=== PATIENT | female | born 1960 | race Caucasian/White ===

== ENCOUNTER 2022-03-21 11:12 | Outpatient (CLI) | payer OTHER, BC, SELFPAY ==
--- NOTE | 2022-03-21 11:30 | CRLHL7_ITS ---
For Patients: As a result of the Cures Act, medical imaging exams and procedure reports are released immediately into your electronic medical record. You may view this report before your referring provider. If you have questions, please contact your health care provider. BILATERAL SCREENING MAMMOGRAM WITH COMPUTER-AIDED DETECTION AND TOMOSYNTHESIS TECHNIQUE: CC and MLO views were obtained. These mammographic images have been obtained using full-field digital technique. These mammographic images were interpreted with the benefit of computer-aided detection. Breast tomosynthesis was used in this interpretation. COMPARISON FILM: 11/10/19, 05/22/18, 01/08/17. FINDINGS: There are scattered areas of fibroglandular density. IMPRESSION: There is no radiographic evidence for malignancy. ASSESSMENT: BI-RADS Category 1: Negative RECOMMENDATION: Routine screening mammogram in 1 year. A lay language report of this examination will be provided to the patient. JOVAN KIRK M.D. Diagnostic Radiologist [email or web address] JORGE/stan Transcribed: 03/22/2022, 2:[address]/Dictated by: Jovan Kirk MD @ 03/22/2022 8:32:00 AM (Electronically Signed)
== END 2022-03-21 11:13 | disposition home or self-care (01) ==
LOC: MAMMO 11:12
PROVIDERS: PCP Nurse Practitioner Family; Visit Provider Nurse Practitioner Family
DX: Z12.31 Encounter for screening mammogram for malignant neoplasm of breast (principal)
CPT/HCPCS: 77063; 77067

== ENCOUNTER 2023-06-22 13:28 | Outpatient (CLI) | payer BC, SELFPAY ==
--- OUTSIDE RECORDS SUMMARY | 2023-06-22 13:30 | XMS_ITS | Continuity of Care Document ---
Author Name Unknown Organization [facility] Address [address] [address] [place] [address] Phone Care Team Providers Care Certified Medication Technician Name Role Phone Duane Lozoya CRNA Unavailable Unavailable Allergies, Adverse Reactions, Alerts Substance Reaction Status Criticality glycerin Anaphylactic shock Active No Inform ation PENICILLIN HivesHives Active No Information Medications Medication Instructions Dosage Effective Dates (start - stop) Status Comments Wellbutrin XL 150 mg 24 hr tablet, extended release take 1 tablet by oral route every day 150 MG - Active buspirone 10 mg tablet take 1 tablet by oral route every day 10 MG - Active lorazepam 1 mg tablet take 1 tablet by O RAL route 3 times every day as needed 1 MG - Active Procedures Procedure Date Colonoscopy Flex; W/remov Les- Level Iv-surg Path Gross/micro Advance Directives Directive Yes / No Effective Date File Name No Information Encounters Encounter Description Practice Location Reason(s) For Visit Diagnoses Date Provider Providers Copied on Encounter [facility], [address] [address], [place], [id number], [place] tel:[phone] [place] [facility] No Information 3 Darell Zepeda. [address], [place], [id number] , [place]. tel:[phone] Referring Provider: Madhav Mon MD H, [address], [place], [address] . tel:[phone] [facility], [address] [address], [place], [id number], [place] tel:[phone] [facility] GI Symptoms or Concerns (chief complaint) Personal history of colonic polypsColorectal polyp detected on colonoscopyDivertic ulosis of colon without diverticulitisEncou nter for screening for malignant neoplasm of colonBenign neoplasm of cecumDvrtclos of lg int w/o perforation or abscess w/o bleedingBenign neoplasm of cecumPersonal history of colonic polyps 3 Elieser Corey. [address] [facility] [address], [place], [id number] , [place]. [phone] Referring Provider: Nichole Cooper NP , [address] [place] [address], [address]. tel:[phone] [facility], [address] [address], [place], [id number], [place] tel:[phone] [facility] No Information 2 Sujit Jacobs. [address] [facility] [address], [place], [place], [id number] , [place]. [phone] Family History Family Member Type Diagnosis Age At Onset Father Problem (finding) Colon polyps Father Problem (finding) Cancer, prostate Sister Problem (finding) Alcoholism Mother Problem (finding) GERD Immunizations Vaccine Date Status Comments SARS-COV-2 (COVID-19) vaccin e, mRNA, spike protein, LNP, bivalent booster, preservative free, 30 mcg/0.3 mL dose, amy-sucrose formulation administered Note: [facility] bi-d irectional interface ; Source: Other Registry Afluria Qd administered Note: [facility] bi-directional interface ; Source: Other Registry SARS-COV-2 (COVID-19) vaccin e, mRNA, spike protein, LNP, preservative free, 30 mcg/0.3mL dose administered Note: [facility] bi-direct ional interface ; Source: Other Registry SARS-COV-2 (COVID-19) vaccin e, mRNA, spike protein, LNP, preservative free, 30 mcg/0.3mL dose administered Note: [facility] bi-direct ional interface ; Source: Other Registry SARS-COV-2 (COVID-19) vaccin e, mRNA, spike protein, LNP, preservative free, 30 mcg/0.3mL dose administered Note: [facility] bi-direct ional interface ; Source: Other Registry tetanus toxoid, reduced diphtheria toxoid, and acellular pertussis vaccine, adsorbed administered Note: [facility] b i-directional interface ; Source: Other Registry Payers Payer name Insurance type Covered republican ID Authoriza tiabraham(s) [employer] [facility] [id number] [facility] [id number] Social History Type Description Quantity Date Captured Comments Sex Female Smoking Status No Information Chief Complaint And Reason For Visit No Information Reason For Referral Reason For Referral No Information History Of Present Illness Encounter Date Complaint History Of Prese nt Illness GI Symptoms or Concerns Functional Status Date Functional Assessmen t No Information Instructions Date Instruction Additional Infor mation Colon Polyps Related to Perso nal history of colonic polyps Colon Cancer Prevention Related to Personal history of colonic polyps High Fiber Diet Related to Perso nal history of colonic polyps Diverticulosis/Diverticulitis Re lated to Personal history of colonic polyps Assessments Type Assessment Date No Information Patient Care Teams Name Effective Dates (start - stop) Status Members No Information
--- OUTSIDE RECORDS SUMMARY | 2023-06-22 13:30 | XMS_ITS | Continuity of Care Document ---
Author Name Unknown Organization [facility] Address [address] [place] [address] Phone Care Team Providers Care Assistant At Surgery Name Role Phone Rtia SEGURA MD, [place] Unavailable Unavailable Advance Directives Directive Yes / No Effective Date File Name No Information Encounters Encounter Description Practice Location Reason(s) For Visit Diagnoses Date Provider Providers Copied on Encounter [facility], [address], [place], [place], [id number], [place] tel:[phone] No Information Rita SEGURA Dillon. [address], [facility], [place], [address], [place]. tel:[phone] Referring Provider: Hanna Veloz MD J, [address], [place], [address] . tel:[phone] Family History Family Member Type Diagnosis Age At Onset No Information Payers Payer name Insurance type Covered green party ID Authoriza tiabraham(s) [facility] [id number] Social History Type Description Quantity Date Captured Comments Sex Female Smoking Status No Information Chief Complaint And Reason For Visit No Information Reason For Referral Reason For Referral No Information History Of Present Illness Encounter Date Complaint History Of Prese nt Illness No Information Functional Status Date Functional Assessmen t No Information Instructions Date Instruction Additional Infor mation No Information Assessments Type Assessment Date No Information Patient Care Teams Name Effective Dates (start - stop) Status Members No Information
--- OUTSIDE RECORDS SUMMARY | 2023-06-22 13:30 | XMS_ITS | Continuity of Care Document ---
Author Name Unknown Organization [facility] Address [address] [place] [address] Phone Care Team Providers Care Source Inspector Name Role Phone Simran Palomares MD Unavailable Unavailable Allergies, Adverse Reactions, Alerts Substance Reaction Status Criticality propylene glycol Active No Informat ion GLYCERIN Active No Information Penicillins Active No Information Medications Medication Instructions Dosage Effective Dates (start - stop) Status Comments albuterol sulfate HFA 90 mcg/actuation aerosol inhaler inhale 2 puff by inhalation route every 4 - 6 hours as needed - Active buspirone 10 mg tablet take 1 tablet by oral route every day 10 MG - Active VANQUISH (unknown strength) Not Available - Active Aleve 220 mg tablet take 1 tablet by oral route every day as needed 220 MG - Active Celebrex 200 mg capsule take 1 capsule by oral route 2 times every day 200 MG - Active Procedures Procedure Date Office/Outpatient Visit, New Routine Venipuncture Specimen Handling Rbc Sed Rate, Nonautomated CReactive Protein CCP Antibody Results Test Name Date and Time Measure Units Reference Range Abnormal Flag Status Comments Panel Description: ESR Final ESR 2019 11:30:0 0 42 mm/hr 0-25 H Final Panel Description: CRP Final CRP 2019 12:01:0 0 1.41 MG/DL 0.00-0.60 H Final Panel Description: HLA-B27 ANTIGEN Final HLA-B27 ANTIGEN 2019 11:27:0 0 NEGATIVE NEGATIVE N Final Panel Description: PROTEIN, TOTAL AND PROTEIN EL ECTROPHORESIS Final PROTEIN, TOTAL 2019 11:46:0 0 6.9 g/dL 6.1-8.1 N Final ALBUMIN 2019 11:46:0 0 4.0 g/dL 3.8-4.8 N Final ALPHA 1 GLOBULIN 2019 11:46:0 0 0.3 g/dL 0.2-0.3 N Final ALPHA 2 GLOBULIN 2019 11:46:0 0 0.7 g/dL 0.5-0.9 N Final BETA 1 GLOBULIN 2019 11:46:0 0 0.4 g/dL 0.4-0.6 N Final BETA 2 GLOBULIN 2019 11:46:0 0 0.4 g/dL 0.2-0.5 N Final GAMMA GLOBULIN 2019 11:46:0 0 1.1 g/dL 0.8-1.7 N Final INTERPRETATION 2019 11:46:0 0 Final Protein electrophoresis pattern appears normal. Panel Description: CCP Final cCP 2019 17:23:0 0 0.1 U/mL 0.0-5.0 Final Advance Directives Directive Yes / No Effective Date File Name No Information Encounters Encounter Description Practice Location Reason(s) For Visit Diagnoses Date Provider Providers Copied on Encounter Office/Outpa tient Visit, New [facility], [address], [place], [address], [place] tel:[phone] [facility] , Joint Pain (chief complaint) Pain in joints of unspecified handElevated C-reactive protein (CRP)Elevate d erythrocyte sedimentatio n rateOther dorsalgia 0 Jelani Khalil. [facility] [address], [place], [address], [place]. tel:[phone] Referring Provider: Simran Obrien, [facility] [address], [place], [address]. tel:[phone] Family History Family Member Type Diagnosis Age At Onset No Information Payers Payer name Insurance type Covered green party ID Authoriza tiabraham(s) [facility] [id number] [facility] [id number] Social History Type Description Quantity Date Captured Comments Alcohol Use Details Unknown Caffeine Use Details Unknown Tobacco Use Status No Information Smoking Status No Information Sex Female Vital Signs Date / Time: Height Weight BMI Pulse Rate Blood Pressure Temperature Respiratory Rate Body Surface Area Head Circumference Head Circ. Percentile Wt./Surjit. Percentile BMI percentile Pulse Ox Inhaled Ox 8:43 AM 65.00 in 91.626 kg (202.00 lbs) 33.6 1 kg/m eter (2) 76 /min 122/72 mm[Hg] 96.50 F Chief Complaint And Reason For Visit From encounter dated 05/19/2019 08:30'. Joint Pain (chief complaint) Reason For Referral Reason For Referral No Information History Of Present Illness Encounter Date Complaint History Of Prese nt Illness Joint Pain Functional Status Date Functional Assessmen t Pain Score 3/10 Instructions Date Instruction Additional Infor mation No Information Assessments Type Assessment Date assessment Pain in joints of unspecified ureña nd assessment Elevated C-reactive protein (CRP ) assessment Elevated erythrocyte sedimentati on rate assessment Other dorsalgia Mental Status Date Cognitive Assessment N/A Patient Care Teams Name Effective Dates (start - stop) Status Members No Information
--- NOTE | 2023-06-22 13:45 | MR_ITS ---
Patient: RANDY OLIVER Facility:?[facility] Patient ID:?[id number] Site Patient ID:?[id number]. Site :?[id number] Study:?MRI-Head W/O-06/22/2023 2:54:26 PM Ordering Physician:ARABELLA LOMBARDO Final Report: Indication: Headaches. History of low-lying cerebellar tonsils Technique: Noncontrast sagittal T1, axial FLAIR, T2, diffusion weighted sequences are provided. Compared to prior study from March 17, 2020 Findings: Stable mild low-lying cerebellar tonsils extend approximately 4-5 millimeters below the foramen magnum. The ventricles, sulci and gyri are normal size, shape and contour for age. The midline structures are centrally located with no evidence of shift. There are no suspicious intra or extra-axial fluid collections. No region of restricted diffusion. Expected flow voids in the cavernous carotids and basilar artery. Stable solitary focus of signal abnormality in the periventricular white matter adjacent to the posterior horn of the left lateral ventricle that is nonspecific. Impression: 1. Stable, no radiographic evidence of acute intracranial abnormalities. 2. 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 No evidence of hydrocephalus. 3. Stable solitary focus of signal abnormality in the left posterior periventricular white matter that is nonspecific. Differential considerations include changes related to diabetes, hypertension, collagen vascular disease or migranous headaches. Dictated by Immanuel Tejada MD @ 06/23/2023 8:46:33 AM Signed by:?Immanuel Tejada MD @06/23/2023 8:46:33 AM (Electronic Signature)
--- NOTE | 2023-06-22 14:30 | MR_ITS ---
Patient: RANDY OLIVER Facility:?[facility] R[facility] Patient ID:?[id number] Site Patient ID:?[id number]. Site :?[id number] Study:?MRI-Spine Cervical W/O-06/22/2023 2:55:12 PM Ordering Physician:?ARABELLA MACDONALD Final Report: INDICATION: Neck pain. Headaches. TECHNIQUE: Noncontrast sagittal T1, T2, STIR and axial GRE sequences are provided. Compared to prior study from March 17, 2020. FINDINGS: The overall stature, alignment and intrinsic marrow signal of the cervical spine is within normal limits. Cervical cord is normal. Stable mild low-lying cerebellar tonsils. C2-3, C3-4: Unremarkable. C4-5: Tiny posterior central disc protrusion with endplate osteophyte results in no central canal or foraminal narrowing. C5-6: Mild circumferential disc osteophyte complex results in no central canal or foraminal narrowing. C6-7: Asymmetric uncovertebral joint and facet arthropathy results in stable moderate right and mild left foraminal narrowing. Central canal is patent. C7-T1: Unremarkable. IMPRESSION: 1. Stable moderate right and mild left C6-7 foraminal narrowing. 2. Stable mild low-lying cerebellar tonsils. 3. Stable milder degenerative changes within the remainder of the cervical spine as outlined above. Dictated by Immanuel Tejada MD @ 06/23/2023 8:51:18 AM Signed by:?Immanuel Tejada MD @06/23/2023 8:51:18 AM (Electronic Signature)
== END 2023-06-22 13:29 | disposition home or self-care (01) ==
LOC: MRI 13:28
PROVIDERS: PCP Nurse Practitioner Family; Visit Provider Nurse Practitioner Family
DX: R51.9 Headache, unspecified (principal); G93.5 Compression of brain; M54.2 Cervicalgia; M50.223 Other cervical disc displacement at C6-C7 level; H35.30 Unspecified macular degeneration
CPT/HCPCS: 70551; 72141; 80053; 80061; 85025; 85651; 86039; 86140; 86200; 86431

== ENCOUNTER 2023-11-26 08:44 | Outpatient (RCR) | payer BC, SELFPAY | END 2024-03-12 14:58 | disposition home or self-care (01) | PROVIDERS: PCP Nurse Practitioner Family; Visit Provider Nurse Practitioner Family | DX: M25.551 Pain in right hip (principal); Z51.89 Encounter for other specified aftercare | CPT/HCPCS: 97110; 97161 ==

== ENCOUNTER 2024-10-20 12:44 | Outpatient (CLI) | payer BC, SELFPAY ==
--- NOTE | 2024-10-20 13:00 | CRLHL7_ITS ---
For Patients: As a result of the Century Cures Act, medical imaging exams and procedure reports are released immediately into your electronic medical record. You may view this report before your referring provider. If you have questions, please contact your health care provider. INDICATION: BILATERAL SCREENING MAMMOGRAM, ASYMPTOMATIC 63 Y/O FEMALE COMPARISON: 03/21/2022, 11/10/2019, 05/22/2018 TECHNIQUE: Digital mammogram in CC and MLO projections including computer-aided detection (CAD) and tomosynthesis. BREAST COMPOSITION: There are scattered areas of fibroglandular density. FINDINGS: No suspicious findings. ASSESSMENT: BI-RADS 1 Negative RECOMMENDATION: Annual screening mammogram. A lay language report of this examination will be provided to the patient. Dictated by: Jovan Worthington MD @ 10/21/2024 08:52:50 (Electronically Signed)
== END 2024-10-20 12:45 | disposition home or self-care (01) ==
LOC: MAMMO 12:45
PROVIDERS: PCP Nurse Practitioner Family; Visit Provider Nurse Practitioner Family
DX: Z12.31 Encounter for screening mammogram for malignant neoplasm of breast (principal)
CPT/HCPCS: 77063; 77067

== ENCOUNTER 2024-10-31 11:03 | Outpatient (CLI) | payer BC, SELFPAY | END 2024-10-31 11:04 | disposition home or self-care (01) | PROVIDERS: PCP Nurse Practitioner Family; Visit Provider Nurse Practitioner Family | DX: Z00.00 Encounter for general adult medical examination without abnormal findings (principal); Z13.0 Encounter for screening for diseases of the blood and blood-forming organs and certain disorders involving the immune mechanism; R00.0 Tachycardia, unspecified | CPT/HCPCS: 80050; 80053; 80061; 83735; 84443; 85025; 85651 ==

== ENCOUNTER 2024-11-18 08:59 | Outpatient (CLI) | payer BC, SELFPAY ==
--- NOTE | 2024-11-18 09:15 | CRLHL7_ITS ---
For Patients: As a result of the Century Cures Act, medical imaging exams and procedure reports are released immediately into your electronic medical record. You may view this report before your referring provider. If you have questions, please contact your health care provider. CLINICAL HISTORY: Carotid bruits TECHNIQUE: The carotid circulations and the vertebral arteries in the neck were examined with england-scale ultrasound, color-flow and Doppler spectral analysis. Degrees of stenosis were determined using SRU 2002 Consensus Panel Criteria. FINDINGS: Sonographic images demonstrate mild atherosclerotic plaque formation without suspicious soft tissue mass. There was antegrade blood flow demonstrated within the vertebral arteries and the subclavian arteries demonstrated a normal triphasic waveform. The spectral Doppler tracings of the common carotid, internal and external carotid arteries demonstrate no abnormal turbulence or spectral broadening. There was no significant elevation of peak systolic blood flow which would indicate a hemodynamically-significant stenosis by SRU criteria. The ICA/CCA peak systolic velocity ratio measures 0.9 on the right and 1.0 on the left. IMPRESSION: Less than 50% stenosis of the ICAs bilaterally. Dictated by Jovan Worthington MD @ 11/18/2024 10:35:29 AM (Electronically Signed)
== END 2024-11-18 09:00 | disposition home or self-care (01) ==
LOC: US 08:59
PROVIDERS: PCP Nurse Practitioner Family; Visit Provider Nurse Practitioner Family
DX: R09.89 Other specified symptoms and signs involving the circulatory and respiratory systems (principal); I65.23 Occlusion and stenosis of bilateral carotid arteries
CPT/HCPCS: 93880